=== PATIENT | female | born 1945 | race Caucasian/White ===

== ENCOUNTER → 2021-12-09 | Emergency (ER) | payer OTHER ==
[~2021-12-09] VITALS: Ht 149.9 cm; Wt 58.5 kg
[~2021-12-09] MED LIST: GLUMETZA500 MG PO; LEVOTHYROXINE25 MCG PO
== END | disposition home or self-care (01) ==
LOC: ER 09:36
DX: B34.9 Viral infection, unspecified (principal); J98.8 Other specified respiratory disorders; R53.81 Other malaise; E11.9 Type 2 diabetes mellitus without complications; E03.9 Hypothyroidism, unspecified; Z20.822 Contact with and (suspected) exposure to COVID-19